=== PATIENT | female | born 1940 | race Caucasian/White ===

== ENCOUNTER → 2016-10-13 | Outpatient (CLI) | payer OTHER, BC ==
[~2016-10-13] MED LIST: ANT12.5 PO; CLARITIN10 MG; DIOVAN320 MG; ECO81 PO; LAC PO; LEVOFLOXACIN500 M1 PO; NOR5 PO; SIMVASTATIN10 M1
== END | disposition home or self-care (01) ==
LOC: RD 11:45
DX: J40 Bronchitis, not specified as acute or chronic (principal); R06.02 Shortness of breath

== ENCOUNTER → 2018-01-23 | Outpatient (CLI) | payer OTHER, BC | END | disposition home or self-care (01) | LOC: RD 15:13 | DX: M54.5 Low back pain (principal) ==

== ENCOUNTER → 2018-12-23 | Outpatient (CLI) | payer OTHER, BC | END | disposition home or self-care (01) | LOC: US 08:55 | PROC: BT4JZZZ Ultrasonography of Kidneys and Bladder (ICD-10-PCS; principal; 2018-12-23) | DX: R30.0 Dysuria (principal) ==

== ENCOUNTER → 2019-04-10 | Outpatient (CLI) | payer OTHER, BC | END | disposition home or self-care (01) | LOC: RD 12:05 | DX: M25.572 Pain in left ankle and joints of left foot (principal); R60.9 Edema, unspecified ==